=== PATIENT | male | born 1990 | race Caucasian/White ===

== ENCOUNTER 2017-01-09 16:51 | Emergency (ER) | payer MEDICAID ==
[~2017-01-09] VITALS: Ht 182.9 cm; Wt 77.1 kg
[2017-01-09 17:03] VITALS: BP 169/86
== END 2017-01-09 17:34 | disposition home or self-care (01) ==
LOC: ER 16:54
DX: R20.2 Paresthesia of skin (principal); R20.0 Anesthesia of skin; F10.20 Alcohol dependence, uncomplicated
CPT/HCPCS: A4606; Z7502; Z7610